=== PATIENT | male | born 1955 | race Caucasian/White ===

== ENCOUNTER 2018-10-28 10:23 | Day surgery (SDC) | payer MEDICAID ==
[~2018-10-28] VITALS: Ht 170.2 cm; Wt 64.7 kg
[2018-10-28] VITALS (9 sets, daily range): BP systolic 81–125; BP diastolic 50–76
[~2018-10-28 10:23] MED LIST: ALB0.5UD IH; ASPI-1265 PO; CARV6.253 PO; FOLI1TAB16 PO; FURO20TA4 PO; LISI2.5T2 PO; OMEP20TA23 PO; SIMV20TA5 PO; SPIR25TA PO; THI100T PO; TRAM50TA2 PO
[2018-10-28] MEDS ORDERED: cefazolin/dext.iso 2gm/100ml 100 ML IV ONE ×2 (10:46→11:52)
[2018-10-28] MEDS ORDERED: normal saline 1000ml 1,000 ML IV SCH (10:50)
[2018-10-28] MEDS ORDERED: LISI2.5T89 PO (11:24)
[2018-10-28] MEDS ORDERED: ASPI-611 PO (11:24)
[2018-10-28] MEDS ORDERED: FOLI1TAB16 PO (11:24)
[2018-10-28] MEDS ORDERED: FURO-150 PO (11:24)
[2018-10-28] MEDS ORDERED: CARV-49 PO (11:24)
[2018-10-28] MEDS ORDERED: ATR0.5NEB IH (11:24)
[2018-10-28] MEDS ORDERED: NICO-630 TOP (11:24)
[2018-10-28] MEDS ORDERED: midazolam 2 mg/2 ml injection ONE (11:28)
[2018-10-28] MEDS ORDERED: fentaNYL/PF 50MCG/1 ML 2ML syringe ONE (11:28)
[2018-10-28] MEDS ORDERED: ceFAZolin 1000mg inj ONE (11:28)
[2018-10-28] MEDS ORDERED: lidocaine 1%/epinephrine 1:100,000 injection 50ml vial ONE (11:28)
[2018-10-28] MEDS ORDERED: ceFAZolin 1GM/D5W- ADD-VANTAGE 50 ML IV SCH (16:00)
== END 2018-10-28 15:50 | disposition home or self-care (01) ==
LOC: SSTAY O 10:23
PROVIDERS: ATTEND Internal Medicine Interventional Cardiology
DX: I50.9 Heart failure, unspecified (principal); I42.8 Other cardiomyopathies; J44.9 Chronic obstructive pulmonary disease, unspecified; I11.0 Hypertensive heart disease with heart failure; Z79.82 Long term (current) use of aspirin; Z79.899 Other long term (current) drug therapy; Z82.49 Family history of ischemic heart disease and other diseases of the circulatory system; Z86.74 Personal history of sudden cardiac arrest
CPT/HCPCS: 33249; 93005; 99152; 99153; C1722; C1777; J0690; J2250; J3010; J3490; J7030; A4565; A4620

== ENCOUNTER 2018-10-31 10:15 | Emergency (ER) | payer MEDICAID ==
[~2018-10-31] VITALS: Ht 170.2 cm; Wt 63.8 kg
[~2018-10-31 10:15] MED LIST changes: -ASPI-1265 PO; +ASPI-611 PO; +ATR0.5NEB IH; +CARV-49 PO; -CARV6.253 PO; +FURO-150 PO; -FURO20TA4 PO; -LISI2.5T2 PO; +LISI2.5T89 PO; +NICO-630 TOP; -SPIR25TA PO; -THI100T PO; -TRAM50TA2 PO
[2018-10-31 11:57] LABS: BASOPHILS # (AUTO) 0.1 X10'3 (0-0.2); BASOPHILS % (AUTO) 1.7 % (0-1); EOSINOPHILS # (AUTO) 0.2 X10'3 (0-0.9); EOSINOPHILS % (AUTO) 2.4 % (0-6); HEMOGLOBIN 14.5 g/dl (14.0-17.9); LYMPHOCYTES # (AUTO) 1.4 X10'3 (1.1-4.8); LYMPHOCYTES % (AUTO) 17.4 % (21-51); MEAN CORPUSCULAR HEMOGLOBIN 33.1 PG (27.0-31.0); MEAN CORPUSCULAR HGB CONC 33.8 g/dL (33.0-36.5); MEAN CORPUSCULAR VOLUME 97.9 FL (78-98); MEAN PLATELET VOLUME 6.9 FL (7.4-10.4); MONOCYTES # (AUTO) 0.8 X10'3 (0-0.9); NEUTROPHILS # (AUTO) 5.6 X10'3 (1.8-7.7); NEUTROPHILS % (AUTO) 68.5 % (42-75); PLATELET COUNT 182 X10'3 (140-440); RED BLOOD COUNT 4.39 X10'6 (4.70-6.10); RED CELL DISTRIBUTION WIDTH 15.4 % (11.5-14.5); WHITE BLOOD COUNT 8.1 X10'3 (4.5-11.0)
[2018-10-31 12:08] LABS: PARTIAL THROMBOPLASTIN TIME 28 SECONDS (22-32)
[2018-10-31 12:24] LABS: ALANINE AMINOTRANSFERASE 39 U/L (12-78); ALBUMIN 3.4 G/DL (3.4-5.0); ALBUMIN/GLOBULIN RATIO 0.9 (1.1-1.5); ALKALINE PHOSPHATASE 93 IU/L (46-116); ANION GAP 6 (8-16); ASPARTATE AMINO TRANSFERASE 36 U/L (10-37); BILIRUBIN,TOTAL 0.6 MG/DL (0.1-1.0); BLOOD UREA NITROGEN 15 MG/DL (7-18); BUN/CREATININE RATIO 19.5 (5.4-32.0); CALCIUM 9.1 MG/DL (8.5-10.1); CHLORIDE 103 MMOL/L (99-107); CREATININE 0.77 MG/DL (0.60-1.10); GLUCOSE 95 MG/DL (70-104); POTASSIUM 4.5 MMOL/L (3.5-5.1); SODIUM 135 MMOL/L (135-145); TOTAL CARBON DIOXIDE 26.4 MMOL/L (24-32); TOTAL PROTEIN 7.1 G/DL (6.4-8.2); eGFR > 90 ML/MIN
[2018-10-31 12:45] VITALS: BP 109/79
[2018-10-31] MEDS ORDERED: AMOX-422 PO (12:48)
[2018-10-31 13:32] LABS: D-DIMER 0.65 MG/L FEU (0-0.50)
== END 2018-10-31 12:53 | disposition home or self-care (01) ==
LOC: ER 10:15
DX: T82.7XXA Infection and inflammatory reaction due to other cardiac and vascular devices, implants and grafts, initial encounter (principal); F17.200 Nicotine dependence, unspecified, uncomplicated; Z79.82 Long term (current) use of aspirin; Z79.899 Other long term (current) drug therapy; Y83.8 Other surgical procedures as the cause of abnormal reaction of the patient, or of later complication, without mention of misadventure at the time of the procedure; Y92.89 Other specified places as the place of occurrence of the external cause
CPT/HCPCS: 36415; 71045; 80053; 83605; 84145; 85025; 85379; 85610; 85730; 87040; 93005; 99284

== ENCOUNTER 2018-10-31 18:31 | Inpatient (IN) | payer MEDICAID ==
[~2018-10-31] VITALS: Ht 170.2 cm; Wt 67.8 kg
[~2018-10-31 18:31] MED LIST changes: +AMOX-422 PO
[2018-10-31] MEDS ORDERED: vancomycin/NS 1 GM ADD-VANTAGE 250 ML IV ONE (20:00)
[2018-10-31] MEDS ORDERED: piperacillin/tazo 3.375gm/50ml 50 ML IV ONE (20:00)
[2018-10-31] MEDS ORDERED: potassium Cl 20 mEq SR tablet PO PRN ×2 (20:15)
[2018-10-31] MEDS ORDERED: potassium Cl 40MEQ/NS 500ml 500 ML IV PRN ×2 (20:15)
[2018-10-31] MEDS ORDERED: magnesium hydroxide 30ml (MOM) UD suspension PO PRN (20:15)
[2018-10-31] MEDS ORDERED: acetaminophen 325mg tablet PO PRN (20:15)
[2018-10-31] MEDS ORDERED: magnesium Cl slow-release 64mg tablet PO PRN (20:15)
[2018-10-31] MEDS ORDERED: magnesium 4gm in 100ml NS 100 ML IV PRN (20:15)
[2018-10-31] MEDS ORDERED: mag hydrox/Alum hydrox/simeth 30ml oral suspension PO PRN (20:15)
[2018-10-31] MEDS ORDERED: ondansetron/PF 4mg/2ml inj IV PRN (20:15)
[2018-10-31] MEDS ORDERED: magnesium 2GM in 50ml NS 50 ML IV PRN (20:15)
[2018-10-31 20:23] LABS: BASOPHILS # (AUTO) 0.1 X10'3 (0-0.2); EOSINOPHILS # (AUTO) 0.2 X10'3 (0-0.9); EOSINOPHILS % (AUTO) 2.7 % (0-6); HEMATOCRIT 40.7 % (42.0-52.0); LYMPHOCYTES # (AUTO) 1.4 X10'3 (1.1-4.8); LYMPHOCYTES % (AUTO) 16.9 % (21-51); MEAN CORPUSCULAR HEMOGLOBIN 33.7 PG (27.0-31.0); MEAN CORPUSCULAR HGB CONC 34.4 g/dL (33.0-36.5); MEAN CORPUSCULAR VOLUME 97.7 FL (78-98); MEAN PLATELET VOLUME 6.6 FL (7.4-10.4); MONOCYTES # (AUTO) 0.8 X10'3 (0-0.9); MONOCYTES % (AUTO) 9.8 % (2-12); NEUTROPHILS # (AUTO) 5.9 X10'3 (1.8-7.7); NEUTROPHILS % (AUTO) 69.6 % (42-75); PLATELET COUNT 187 X10'3 (140-440); RED BLOOD COUNT 4.16 X10'6 (4.70-6.10); RED CELL DISTRIBUTION WIDTH 14.7 % (11.5-14.5); WHITE BLOOD COUNT 8.4 X10'3 (4.5-11.0)
[2018-10-31 20:41] LABS: URINE AMPHETAMINE SCREEN NEGATIVE (Neg); URINE BARBITUATE SCREEN NEGATIVE (Neg); URINE BENZODIAZEPINES SCREEN NEGATIVE (Neg); URINE CANNABINOID SCREEN NEGATIVE (Neg); URINE COCAINE SCREEN NEGATIVE (Neg); URINE METHADONE SCREEN NEGATIVE (Neg); URINE OPIATE SCREEN POSITIVE (Neg); URINE PHENCYCLIDINE SCREEN NEGATIVE (Neg)
[2018-10-31 20:44] LABS: ALANINE AMINOTRANSFERASE 38 U/L (12-78); ALBUMIN 3.3 G/DL (3.4-5.0); ALBUMIN/GLOBULIN RATIO 0.8 (1.1-1.5); ALKALINE PHOSPHATASE 102 IU/L (46-116); ANION GAP 8 (8-16); ASPARTATE AMINO TRANSFERASE 36 U/L (10-37); BILIRUBIN,TOTAL 0.4 MG/DL (0.1-1.0); BLOOD UREA NITROGEN 20 MG/DL (7-18); BUN/CREATININE RATIO 18.7 (5.4-32.0); CALCIUM 9.1 MG/DL (8.5-10.1); CHLORIDE 103 MMOL/L (99-107); CREATININE 1.07 MG/DL (0.60-1.10); GLUCOSE 126 MG/DL (70-104); LIPASE 72 U/L (73-393); POTASSIUM 4.2 MMOL/L (3.5-5.1); SODIUM 137 MMOL/L (135-145); TOTAL CARBON DIOXIDE 26.5 MMOL/L (24-32); TOTAL PROTEIN 7.2 G/DL (6.4-8.2); eGFR 70 ML/MIN
[2018-10-31] MEDS ORDERED: ipratropium/albuterol 3ml nebule NEB PRN (21:20)
[2018-10-31] MEDS ORDERED: HYDROcodone/acetaminophen 5mg/325mg tablet PO PRN (21:20)
[2018-10-31] MEDS ORDERED: morphine 4 MG/ML inj SYRINge IV ONE (21:45)
[2018-10-31 23:00] VITALS: BP 121/83
[2018-11-01 03:00] VITALS: BP 102/75
[2018-11-01] MEDS: HYDROcodone/acetaminophen 10/325mg tab PO PRN ×3 (04:25→23:22)
[2018-11-01] MEDS: piperacillin/tazo 3.375gm/50ml 50 ML IV SCH ×3 (04:25→21:03)
--- NOTE | 2018-11-01 06:28 | NUR ---
Problems reprioritized. Patient report given, questions answered & plan of care reviewed with AZAEL PIÑA.
--- NOTE | 2018-11-01 06:36 | NUR ---
Patient in room PCU 3028B. I have received report from Gage PIÑA and had the opportunity to ask questions and assume patient care. Patient is awake and alert in bed, currently denies complaints. Minimal drainage noted on pacemaker site. Patient verbalizes understanding of pending procedure with Dr Rawls this a.m. Bed is low and locked, call light within reach, will continue to monitor at this time.
[2018-11-01 07:01] VITALS: BP 130/86
[2018-11-01 07:09] LABS: ALANINE AMINOTRANSFERASE 33 U/L (12-78); ALBUMIN 2.9 G/DL (3.4-5.0); ALBUMIN/GLOBULIN RATIO 0.9 (1.1-1.5); ALKALINE PHOSPHATASE 85 IU/L (46-116); ANION GAP 5 (8-16); ASPARTATE AMINO TRANSFERASE 31 U/L (10-37); BILIRUBIN,TOTAL 0.5 MG/DL (0.1-1.0); BLOOD UREA NITROGEN 20 MG/DL (7-18); BUN/CREATININE RATIO 24.1 (5.4-32.0); CALCIUM 8.6 MG/DL (8.5-10.1); CHLORIDE 104 MMOL/L (99-107); CHOL/HDL RATIO 2.6 (0.00-4.99); CHOLESTEROL 156 MG/DL (0-200); CREATININE 0.83 MG/DL (0.60-1.10); GLUCOSE 99 MG/DL (70-104); HDL CHOLESTEROL 61 MG/DL (35-60); LDL CHOLESTEROL 91 MG/DL (50-100); MAGNESIUM 1.7 MG/DL (1.5-2.4); POTASSIUM 4.3 MMOL/L (3.5-5.1); SODIUM 136 MMOL/L (135-145); TOTAL CARBON DIOXIDE 26.8 MMOL/L (24-32); TOTAL PROTEIN 6.3 G/DL (6.4-8.2); TRIGLYCERIDES 58 MG/DL (20-135); eGFR > 90 ML/MIN
[2018-11-01 07:11] LABS: BASOPHILS # (AUTO) 0.1 X10'3 (0-0.2); EOSINOPHILS # (AUTO) 0.2 X10'3 (0-0.9); EOSINOPHILS % (AUTO) 2.9 % (0-6); HEMATOCRIT 39.2 % (42.0-52.0); HEMOGLOBIN 13.5 g/dl (14.0-17.9); LYMPHOCYTES # (AUTO) 1.3 X10'3 (1.1-4.8); LYMPHOCYTES % (AUTO) 16.7 % (21-51); MEAN CORPUSCULAR HEMOGLOBIN 33.4 PG (27.0-31.0); MEAN CORPUSCULAR HGB CONC 34.5 g/dL (33.0-36.5); MEAN CORPUSCULAR VOLUME 96.9 FL (78-98); MONOCYTES # (AUTO) 0.8 X10'3 (0-0.9); MONOCYTES % (AUTO) 10.9 % (2-12); NEUTROPHILS # (AUTO) 5.2 X10'3 (1.8-7.7); NEUTROPHILS % (AUTO) 68.5 % (42-75); PLATELET COUNT 158 X10'3 (140-440); RED BLOOD COUNT 4.04 X10'6 (4.70-6.10); RED CELL DISTRIBUTION WIDTH 15.1 % (11.5-14.5); WHITE BLOOD COUNT 7.6 X10'3 (4.5-11.0)
[2018-11-01] MEDS ORDERED: K and/or MAG REPLACEMENT MC SCH (08:00)
[2018-11-01] MEDS: carvedilol 6.25mg tablet PO SCH ×2 (09:24→21:04)
[2018-11-01] MEDS: vancomycin/NS 1 GM ADD-VANTAGE 250 ML IV SCH (09:24)
[2018-11-01] MEDS: furosemide 20MG tablet PO SCH (09:25)
[2018-11-01] MEDS: folic acid 1mg tablet PO SCH (09:25)
[2018-11-01] MEDS: atorvastatin 10mg tablet PO SCH (09:25)
[2018-11-01] MEDS: lisinopril 2.5mg tablet PO SCH (09:26)
[2018-11-01] MEDS ORDERED: VANCOMYCIN 750MG IV in NS 250 ML IV SCH (10:00)
[2018-11-01] MEDS ORDERED: fentaNYL/PF 50MCG/1 ML 2ML syringe ONE (10:33)
[2018-11-01] MEDS ORDERED: midazolam 2 mg/2 ml injection ONE (10:33)
[2018-11-01] MEDS ORDERED: lidocaine 1%/epinephrine 1:100,000 injection 50ml vial ONE (10:33)
--- NOTE | 2018-11-01 10:46 | NUR ---
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
[2018-11-01] MEDS ORDERED: vancomycin 1,000mg inj ONE ×2 (11:02→11:13)
--- NOTE | 2018-11-01 12:11 | NUR ---
Patient back from oil laboratory analyst, denies complaints, appears to be in no distress. Was informed that patient "had a few low blood pressures down in oil laboratory analyst" Patient's current BP is 108/54. Bed is low and locked, all orders faxed to pharmacy, diet ordered. Was instructed by labelling machine operator RN to NOT remove pressure dressing unless patient reports issues on the incision site. Will continue to monitor patient at this time.
[2018-11-01 12:12] VITALS: BP 108/54
[2018-11-01] MEDS ORDERED: normal saline 1000ml 1,000 ML IV SCH (12:15)
[2018-11-01] MEDS ORDERED: LORazepam 1 MG tablet PO PRN (12:15)
[2018-11-01 15:00] VITALS: BP 90/64
[2018-11-01 18:00] VITALS: BP 107/62
--- NOTE | 2018-11-01 18:52 | NUR ---
Problems reprioritized. Patient report given, questions answered & plan of care reviewed with Gage PIÑA and Ivania PIÑA. Patient stable and denies complaints at transfer of care.
[2018-11-01] MEDS ORDERED: pantoprazole 40mg Tablet.DR PO SCH (21:00)
[2018-11-01] MEDS: lactobacillus rhamnosus 10,000 MMU CELLS/CAPSULE PO SCH (21:04)
[2018-11-01 22:00] VITALS: BP 93/62
[2018-11-02] MEDS: piperacillin/tazo 3.375gm/50ml 50 ML IV SCH (04:00)
[2018-11-02] MEDS: vancomycin/NS 1 GM ADD-VANTAGE 250 ML IV SCH (04:03)
--- NOTE | 2018-11-02 06:19 | NUR ---
Problems reprioritized. Patient report given, questions answered & plan of care reviewed with RICARDO PIÑA.
[2018-11-02 06:39] LABS: BASOPHILS # (AUTO) 0.1 X10'3 (0-0.2); BASOPHILS % (AUTO) 1.3 % (0-1); EOSINOPHILS # (AUTO) 0.4 X10'3 (0-0.9); EOSINOPHILS % (AUTO) 4.6 % (0-6); HEMATOCRIT 38.6 % (42.0-52.0); HEMOGLOBIN 13.3 g/dl (14.0-17.9); LYMPHOCYTES # (AUTO) 1.4 X10'3 (1.1-4.8); LYMPHOCYTES % (AUTO) 18.4 % (21-51); MEAN CORPUSCULAR HEMOGLOBIN 33.7 PG (27.0-31.0); MEAN CORPUSCULAR HGB CONC 34.4 g/dL (33.0-36.5); MEAN CORPUSCULAR VOLUME 97.8 FL (78-98); MEAN PLATELET VOLUME 6.9 FL (7.4-10.4); MONOCYTES # (AUTO) 0.7 X10'3 (0-0.9); MONOCYTES % (AUTO) 9.6 % (2-12); NEUTROPHILS # (AUTO) 5.1 X10'3 (1.8-7.7); NEUTROPHILS % (AUTO) 66.1 % (42-75); PLATELET COUNT 159 X10'3 (140-440); RED BLOOD COUNT 3.94 X10'6 (4.70-6.10); RED CELL DISTRIBUTION WIDTH 15.2 % (11.5-14.5); WHITE BLOOD COUNT 7.8 X10'3 (4.5-11.0)
[2018-11-02 06:41] LABS: ALANINE AMINOTRANSFERASE 30 U/L (12-78); ALBUMIN 2.7 G/DL (3.4-5.0); ALBUMIN/GLOBULIN RATIO 0.8 (1.1-1.5); ALKALINE PHOSPHATASE 75 IU/L (46-116); ANION GAP 7 (8-16); ASPARTATE AMINO TRANSFERASE 31 U/L (10-37); BILIRUBIN,TOTAL 0.7 MG/DL (0.1-1.0); BLOOD UREA NITROGEN 16 MG/DL (7-18); BUN/CREATININE RATIO 17.8 (5.4-32.0); CALCIUM 8.9 MG/DL (8.5-10.1); CHLORIDE 103 MMOL/L (99-107); GLUCOSE 90 MG/DL (70-104); MAGNESIUM 1.8 MG/DL (1.5-2.4); POTASSIUM 4.5 MMOL/L (3.5-5.1); SODIUM 137 MMOL/L (135-145); TOTAL CARBON DIOXIDE 26.9 MMOL/L (24-32); eGFR 86 ML/MIN
[2018-11-02 07:00] VITALS: BP 94/72
--- NOTE | 2018-11-02 07:00 | NUR ---
Patient in room PCU 3028. I have received report from Gage PIÑA and had the opportunity to ask questions and assume patient care.
[2018-11-02] MEDS: HYDROcodone/acetaminophen 10/325mg tab PO PRN (08:50)
[2018-11-02] MEDS ORDERED: VANCOMYCIN LEVEL IV NR (09:30)
[2018-11-02] MEDS: carvedilol 6.25mg tablet PO SCH (09:40)
[2018-11-02] MEDS: lactobacillus rhamnosus 10,000 MMU CELLS/CAPSULE PO SCH (09:41)
[2018-11-02] MEDS: atorvastatin 10mg tablet PO SCH (09:41)
[2018-11-02] MEDS: folic acid 1mg tablet PO SCH (09:41)
[2018-11-02] MEDS: furosemide 20MG tablet PO SCH (09:41)
[2018-11-02] MEDS: lisinopril 2.5mg tablet PO SCH (09:44)
[2018-11-02 11:00] VITALS: BP 103/69
--- NOTE | 2018-11-02 13:22 | NUR ---
Patient was discharged at 1255 home. Discharge packet and patient education was reviewed before signing and being sent home with the patient. Rx was given to the patient and sent home with all other belongings. PIV was removed with cannula intact and telemetry monitoring was removed. Patient was wearing sling and was stable and appropriate for discharge. Patient was wheeled down by staff and left via private vehicle.
[2018-11-02] MEDS ORDERED: vancomycin inj 1,250 MG in NS 250ml IV soln IV SCH (16:00)
[2018-11-04] MEDS ORDERED: VANCOMYCIN LEVEL IV NR (03:30)
== END 2018-11-02 12:55 | disposition home or self-care (01) | DRG 813 ==
LOC: ER 18:31 → PCU 3S 20:12 → CMPBEDREQ 11-01 15:13
PROVIDERS: ADMIT Family Medicine; ATTEND Internal Medicine Interventional Cardiology
PROC: 0JC60ZZ Extirpation of Matter from Chest Subcutaneous Tissue and Fascia, Open Approach (ICD-10-PCS; principal; 2018-11-01)
DX: L76.32 Postprocedural hematoma of skin and subcutaneous tissue following other procedure (principal); I42.9 Cardiomyopathy, unspecified; I11.0 Hypertensive heart disease with heart failure; I50.22 Chronic systolic (congestive) heart failure; Y83.8 Other surgical procedures as the cause of abnormal reaction of the patient, or of later complication, without mention of misadventure at the time of the procedure; E78.5 Hyperlipidemia, unspecified; F17.210 Nicotine dependence, cigarettes, uncomplicated; J44.9 Chronic obstructive pulmonary disease, unspecified; Z85.72 Personal history of non-Hodgkin lymphomas; Y92.89 Other specified places as the place of occurrence of the external cause; Z92.21 Personal history of antineoplastic chemotherapy; Z79.899 Other long term (current) drug therapy; Z79.82 Long term (current) use of aspirin; Z82.49 Family history of ischemic heart disease and other diseases of the circulatory system
CPT/HCPCS: 33222; 36415; 80053; 80061; 80202; 80305; 83690; 83735; 85025; 85610; 87070; 94640; 94760; 99152; 99153; 99285; A4565; A4620; G0378; J2250; J2270; J2543; J3010; J3370; J3490; J7030

== ENCOUNTER 2021-01-02 10:42 | Emergency (ER) | payer MEDICAID ==
[~2021-01-02] VITALS: Ht 170.2 cm; Wt 65.9 kg
[~2021-01-02 10:42] MED LIST changes: -AMOX-422 PO; -ASPI-611 PO; +SIMV-42 PO; -SIMV20TA5 PO
[2021-01-02 13:04] LABS: BASOPHILS # (AUTO) 0.1 X10'3 (0-0.2); BASOPHILS % (AUTO) 0.9 % (0-1); EOSINOPHILS # (AUTO) 0.1 X10'3 (0-0.9); EOSINOPHILS % (AUTO) 1.6 % (0-6); HEMATOCRIT 45.2 % (42.0-52.0); HEMOGLOBIN 14.9 g/dl (14.0-17.9); LYMPHOCYTES % (AUTO) 13.3 % (21-51); MEAN CORPUSCULAR HEMOGLOBIN 34.1 PG (27.0-31.0); MEAN CORPUSCULAR VOLUME 103.2 FL (78-98); MEAN PLATELET VOLUME 7.6 FL (7.4-10.4); MONOCYTES # (AUTO) 0.7 X10'3 (0-0.9); MONOCYTES % (AUTO) 9.5 % (2-12); NEUTROPHILS # (AUTO) 5.6 X10'3 (1.8-7.7); NEUTROPHILS % (AUTO) 74.7 % (42-75); PLATELET COUNT 133 X10'3 (140-440); RED BLOOD COUNT 4.38 X10'6 (4.70-6.10); RED CELL DISTRIBUTION WIDTH 14.9 % (11.5-14.5); WHITE BLOOD COUNT 7.4 X10'3 (4.5-11.0)
[2021-01-02 13:24] LABS: ALANINE AMINOTRANSFERASE 36 U/L (12-78); ALBUMIN 3.5 G/DL (3.4-5.0); ALKALINE PHOSPHATASE 99 IU/L (46-116); ANION GAP 8 (8-16); ASPARTATE AMINO TRANSFERASE 31 U/L (10-37); BILIRUBIN,TOTAL 0.8 MG/DL (0.1-1.0); BLOOD UREA NITROGEN 20 MG/DL (7-18); BUN/CREATININE RATIO 18.3 (5.4-32.0); CALCIUM 8.7 MG/DL (8.5-10.1); CHLORIDE 97 MMOL/L (99-107); CREATININE 1.09 MG/DL (0.60-1.10); GLUCOSE 116 MG/DL (70-104); SODIUM 130 MMOL/L (135-145); TOTAL CARBON DIOXIDE 25.5 MMOL/L (24-32); eGFR 68 ML/MIN
[2021-01-02 13:58] LABS: POTASSIUM 6.1 MMOL/L (3.5-5.1)
[2021-01-02 14:27] VITALS: BP 94/71
[2021-01-02] MEDS ORDERED: furosemide 10 MG/1 ML 10ml inj IV ONE (14:30)
[2021-01-02] MEDS ORDERED: albuterol 2.5 MG/3 ML nebule CONTNEB PRN (14:30)
[2021-01-02] MEDS ORDERED: normal saline 1000ml 1,000 ML IV SCH (14:35)
[2021-01-02 17:19] LABS: ANION GAP 8 (8-16); CHLORIDE 97 MMOL/L (99-107); POTASSIUM 5.3 MMOL/L (3.5-5.1); SODIUM 132 MMOL/L (135-145); TOTAL CARBON DIOXIDE 26.9 MMOL/L (24-32)
[2021-01-02] MEDS ORDERED: sodium polystyrene sulfonate 15gm/60ml oral suspension PO ONE (17:25)
== END 2021-01-02 18:02 | disposition home or self-care (01) ==
LOC: ER 10:42
DX: I50.9 Heart failure, unspecified (principal); E87.6 Hypokalemia; R06.02 Shortness of breath; R05 Cough; Z95.0 Presence of cardiac pacemaker; Z72.89 Other problems related to lifestyle; Z79.899 Other long term (current) drug therapy
CPT/HCPCS: 36415; 71045; 80051; 80053; 83880; 84484; 85025; 93005; 94640; 94644; 96361; 96374; 99285; J1940; J7030; 94760; A7015

== ENCOUNTER 2021-02-14 16:28 | Inpatient (IN) | payer MEDICAID ==
[~2021-02-14] VITALS: Ht 172.7 cm; Wt 66.1 kg
[2021-02-14] MEDS ORDERED: normal saline 1000ML IV soln IVB ONE (16:40)
[2021-02-14 17:08] LABS: BASOPHILS # (AUTO) 0.1 X10'3 (0-0.2); BASOPHILS % (AUTO) 0.9 % (0-1); EOSINOPHILS # (AUTO) 0.1 X10'3 (0-0.9); EOSINOPHILS % (AUTO) 0.9 % (0-6); HEMATOCRIT 45.1 % (42.0-52.0); HEMOGLOBIN 15.1 g/dl (14.0-17.9); LYMPHOCYTES # (AUTO) 1.3 X10'3 (1.1-4.8); LYMPHOCYTES % (AUTO) 16.6 % (21-51); MEAN CORPUSCULAR HEMOGLOBIN 33.8 PG (27.0-31.0); MEAN CORPUSCULAR HGB CONC 33.5 g/dL (33.0-36.5); MEAN CORPUSCULAR VOLUME 100.8 FL (78-98); MONOCYTES # (AUTO) 0.7 X10'3 (0-0.9); MONOCYTES % (AUTO) 9.7 % (2-12); NEUTROPHILS # (AUTO) 5.5 X10'3 (1.8-7.7); NEUTROPHILS % (AUTO) 71.9 % (42-75); PLATELET COUNT 163 X10'3 (140-440); RED BLOOD COUNT 4.48 X10'6 (4.70-6.10); RED CELL DISTRIBUTION WIDTH 14.2 % (11.5-14.5); WHITE BLOOD COUNT 7.6 X10'3 (4.5-11.0)
[2021-02-14 17:14] LABS: PARTIAL THROMBOPLASTIN TIME 27 SECONDS (22-32)
[2021-02-14 17:21] LABS: ALANINE AMINOTRANSFERASE 26 U/L (12-78); ALBUMIN 3.5 G/DL (3.4-5.0); ALBUMIN/GLOBULIN RATIO 1.1 (1.1-1.5); ALKALINE PHOSPHATASE 79 IU/L (46-116); ANION GAP 13 (8-16); ASPARTATE AMINO TRANSFERASE 21 U/L (10-37); BILIRUBIN,TOTAL 0.6 MG/DL (0.1-1.0); BLOOD UREA NITROGEN 21 MG/DL (7-18); BUN/CREATININE RATIO 19.4 (5.4-32.0); CALCIUM 8.7 MG/DL (8.5-10.1); CHLORIDE 97 MMOL/L (99-107); CREATININE 1.08 MG/DL (0.60-1.10); GLUCOSE 144 MG/DL (70-104); POTASSIUM 4.6 MMOL/L (3.5-5.1); SODIUM 132 MMOL/L (135-145); TOTAL PROTEIN 6.8 G/DL (6.4-8.2); eGFR 69 ML/MIN
[2021-02-14 17:22] LABS: TROPONIN I < 0.04 NG/ML (0.0-0.05)
--- NOTE | 2021-02-14 17:40 | NUR ---
MORENA Rob made aware 2L NS bolus has been given, BP 105/80, CT has been contacted to come get Pat, and Pat is requesting breathing treatment.
[2021-02-14] MEDS ORDERED: ipratropium/albuterol 3ml nebule NEB ONE (18:00)
--- NOTE | 2021-02-14 18:31 | NUR ---
PA STATES PT CAN EAT.
[2021-02-14] MEDS ORDERED: aspirin 81mg tab.chew PO ONE (19:15)
[2021-02-14] MEDS ORDERED: magnesium hydroxide 30ml (MOM) UD suspension PO PRN (19:55)
[2021-02-14] MEDS ORDERED: normal saline 1000ml 1,000 ML IV SCH (19:55)
[2021-02-14] MEDS ORDERED: diphenhydrAMINE 25mg capsule PO PRN (19:55)
[2021-02-14] MEDS ORDERED: ondansetron/PF 4mg/2ml inj IV PRN (19:55)
[2021-02-14] MEDS ORDERED: morphine 2 MG/ML inj. syringe IV PRN (19:55)
[2021-02-14] MEDS ORDERED: HYDROcodone/acetaminophen 5mg/325mg tablet PO PRN (19:55)
[2021-02-14] MEDS ORDERED: acetaminophen 325mg tablet PO PRN ×2 (19:55)
[2021-02-14] MEDS ORDERED: diphenhydrAMINE 50 mg/ml inj IV PRN (19:55)
[2021-02-14] MEDS ORDERED: acetaminophen 650mg rectal suppository RC PRN (19:55)
[2021-02-14] MEDS ORDERED: ondansetron 4mg rapidly disintigrating tab PO PRN (19:55)
[2021-02-14] MEDS ORDERED: bisacodyl 10mg suppository rectal RC PRN (19:55)
[2021-02-14] MEDS ORDERED: mag hydrox/Alum hydrox/simeth 30ml oral suspension PO PRN (19:55)
[2021-02-14] MEDS: docusate sod 100mg capsule PO SCH (20:00)
[2021-02-14] MEDS ORDERED: iohexol 350MG/ML 100ml bottle IV ONE (20:06)
[2021-02-14 20:17] LABS: HEMOGLOBIN A1C 6.3 % (4.5-6.2)
[2021-02-14 20:30] LABS: CREATINE KINASE 57 U/L (39-308); LIPASE < 50 U/L (73-393); MAGNESIUM 2.1 MG/DL (1.5-2.4); PHOSPHORUS 4.5 MG/DL (2.3-4.5)
[2021-02-14] MEDS ORDERED: IPRA3AMP31 (20:33)
[2021-02-14] MEDS ORDERED: SPIR100T5 PO (20:33)
[2021-02-14] MEDS ORDERED: TIOT4MIS2 INH (20:33)
[2021-02-14] MEDS ORDERED: ASPI-611 PO (20:33)
[2021-02-14] MEDS ORDERED: ipratropium/albuterol 3ml nebule IH PRN (20:45)
[2021-02-14] MEDS ORDERED: temazepam 15mg capsule PO PRN (21:00)
[2021-02-14] MEDS ORDERED: atorvastatin 10mg tablet PO SCH (21:00)
--- NOTE | 2021-02-14 22:17 | NUR ---
Pt sleeping. BP low, which it has been since his arrival to the ED. MD aware. Another liter NS bolus started. Pt denies any complaints at this time.
[2021-02-15] MEDS ORDERED: albuterol 2.5 MG/3 ML nebule NEB PRN
[2021-02-15 01:58] LABS: BASOPHILS # (AUTO) 0.1 X10'3 (0-0.2); BASOPHILS % (AUTO) 1.3 % (0-1); EOSINOPHILS # (AUTO) 0.1 X10'3 (0-0.9); EOSINOPHILS % (AUTO) 1.8 % (0-6); HEMATOCRIT 43.3 % (42.0-52.0); HEMOGLOBIN 14.7 g/dl (14.0-17.9); LYMPHOCYTES # (AUTO) 1.3 X10'3 (1.1-4.8); LYMPHOCYTES % (AUTO) 18.5 % (21-51); MEAN CORPUSCULAR HEMOGLOBIN 33.5 PG (27.0-31.0); MEAN CORPUSCULAR HGB CONC 33.9 g/dL (33.0-36.5); MEAN PLATELET VOLUME 6.8 FL (7.4-10.4); MONOCYTES # (AUTO) 0.7 X10'3 (0-0.9); MONOCYTES % (AUTO) 9.8 % (2-12); NEUTROPHILS # (AUTO) 4.6 X10'3 (1.8-7.7); NEUTROPHILS % (AUTO) 68.6 % (42-75); PLATELET COUNT 143 X10'3 (140-440); RED BLOOD COUNT 4.38 X10'6 (4.70-6.10); RED CELL DISTRIBUTION WIDTH 14.4 % (11.5-14.5); WHITE BLOOD COUNT 6.8 X10'3 (4.5-11.0)
[2021-02-15 02:16] LABS: ALANINE AMINOTRANSFERASE 22 U/L (12-78); ALKALINE PHOSPHATASE 85 IU/L (46-116); ANION GAP 8 (8-16); ASPARTATE AMINO TRANSFERASE 22 U/L (10-37); BILIRUBIN,TOTAL 0.4 MG/DL (0.1-1.0); BLOOD UREA NITROGEN 18 MG/DL (7-18); BUN/CREATININE RATIO 20.2 (5.4-32.0); CHLORIDE 103 MMOL/L (99-107); CHOL/HDL RATIO 3.4 (0.00-4.99); CHOLESTEROL 168 MG/DL (0-200); CREATININE 0.89 MG/DL (0.60-1.10); GLUCOSE 92 MG/DL (70-104); HDL CHOLESTEROL 49 MG/DL (35-60); LDL CHOLESTEROL 97 MG/DL (50-100); POTASSIUM 4.3 MMOL/L (3.5-5.1); SODIUM 136 MMOL/L (135-145); TOTAL CARBON DIOXIDE 25.1 MMOL/L (24-32); TRIGLYCERIDES 68 MG/DL (20-135); eGFR 86 ML/MIN
--- NOTE | 2021-02-15 06:05 | NUR ---
Pt up and ambulatory to restroom with steady gait. Pt AAOx4. No neurological s/s at this time.
[2021-02-15] MEDS ORDERED: pantoprazole 40mg Tablet.DR PO SCH (08:00)
[2021-02-15] MEDS ORDERED: folic acid 1mg tablet PO SCH (08:00)
[2021-02-15] MEDS: docusate sod 100mg capsule PO SCH (08:00)
[2021-02-15] MEDS ORDERED: aspirin 81mg tablet.DR PO SCH (08:00)
[2021-02-15] MEDS ORDERED: carvedilol 6.25mg tablet PO SCH (08:00)
[2021-02-15] MEDS: ipratropium 0.5 MG/2.5ML nebule NEB SCH ×2 (09:02→15:54)
[2021-02-15 14:29] VITALS: BP 102/78
[2021-02-15] MEDS ORDERED: CLOP75TA15 PO (17:29)
[2021-02-15] MEDS ORDERED: ATOR20TA66 PO (17:29)
== END 2021-02-15 18:26 | disposition home or self-care (01) | DRG 45 ==
LOC: ER 16:28 → ED HOLD 19:59
PROVIDERS: ADMIT Family Medicine; ATTEND Internal Medicine
PROC: B3251ZZ Computerized Tomography (CT Scan) of Bilateral Common Carotid Arteries using Low Osmolar Contrast (ICD-10-PCS; principal; 2021-02-14)
PROC: B32G1ZZ Computerized Tomography (CT Scan) of Bilateral Vertebral Arteries using Low Osmolar Contrast (ICD-10-PCS; 2021-02-14)
PROC: B32R1ZZ Computerized Tomography (CT Scan) of Intracranial Arteries using Low Osmolar Contrast (ICD-10-PCS; 2021-02-14)
PROC: B3281ZZ Computerized Tomography (CT Scan) of Bilateral Internal Carotid Arteries using Low Osmolar Contrast (ICD-10-PCS; 2021-02-14)
DX: I63.9 Cerebral infarction, unspecified (principal); I50.23 Acute on chronic systolic (congestive) heart failure; E87.2 Acidosis; E87.1 Hypo-osmolality and hyponatremia; I49.5 Sick sinus syndrome; G44.209 Tension-type headache, unspecified, not intractable; R29.701 NIHSS score 1; J44.9 Chronic obstructive pulmonary disease, unspecified; Z72.0 Tobacco use; Z79.02 Long term (current) use of antithrombotics/antiplatelets; Z79.82 Long term (current) use of aspirin; Z85.72 Personal history of non-Hodgkin lymphomas; Z95.0 Presence of cardiac pacemaker; Z82.49 Family history of ischemic heart disease and other diseases of the circulatory system; Z79.899 Other long term (current) drug therapy
CPT/HCPCS: 36415; 70450; 70496; 70498; 71045; 80053; 80061; 82550; 83036; 83690; 83735; 83880; 84100; 84443; 84484; 85025; 85610; 85730; 87081; 92508; 92616; 93005; 94640; 94760; 97161; 99285; G0378; J7030; Q9967

== ENCOUNTER 2021-03-05 00:17 | Inpatient (IN) | payer MEDICAID ==
[~2021-03-05] VITALS: Ht 170.2 cm; Wt 72.9 kg
[~2021-03-05 00:17] MED LIST changes: +ASPI-611 PO; +ATOR20TA66 PO; -ATR0.5NEB IH; -CARV-49 PO; +CLOP75TA15 PO; +IPRA3AMP31 NEB; -LISI2.5T89 PO; -NICO-630 TOP; -SIMV-42 PO; +SPIR100T5 PO; +TIOT4MIS2 INH
[2021-03-05 00:43] LABS: BASOPHILS % (AUTO) 0.3 % (0-1); EOSINOPHILS # (AUTO) 0.1 X10'3 (0-0.9); EOSINOPHILS % (AUTO) 1.3 % (0-6); HEMATOCRIT 40.1 % (42.0-52.0); HEMOGLOBIN 13.5 g/dl (14.0-17.9); LYMPHOCYTES % (AUTO) 14.6 % (21-51); MEAN CORPUSCULAR HEMOGLOBIN 33.3 PG (27.0-31.0); MEAN CORPUSCULAR HGB CONC 33.7 g/dL (33.0-36.5); MEAN CORPUSCULAR VOLUME 98.8 FL (78-98); MEAN PLATELET VOLUME 7.9 FL (7.4-10.4); MONOCYTES # (AUTO) 0.8 X10'3 (0-0.9); MONOCYTES % (AUTO) 11.7 % (2-12); NEUTROPHILS # (AUTO) 4.9 X10'3 (1.8-7.7); NEUTROPHILS % (AUTO) 72.1 % (42-75); PLATELET COUNT 156 X10'3 (140-440); RED BLOOD COUNT 4.06 X10'6 (4.70-6.10); RED CELL DISTRIBUTION WIDTH 14.4 % (11.5-14.5); WHITE BLOOD COUNT 6.8 X10'3 (4.5-11.0)
[2021-03-05 00:51] LABS: ALANINE AMINOTRANSFERASE 68 U/L (12-78); ALBUMIN/GLOBULIN RATIO 0.9 (1.1-1.5); ALKALINE PHOSPHATASE 128 IU/L (46-116); ANION GAP 9 (8-16); ASPARTATE AMINO TRANSFERASE 57 U/L (10-37); BILIRUBIN,TOTAL 0.7 MG/DL (0.1-1.0); BLOOD UREA NITROGEN 41 MG/DL (7-18); BUN/CREATININE RATIO 20.9 (5.4-32.0); CHLORIDE 100 MMOL/L (99-107); CREATININE 1.96 MG/DL (0.60-1.10); GLUCOSE 115 MG/DL (70-104); POTASSIUM 5.7 MMOL/L (3.5-5.1); SODIUM 132 MMOL/L (135-145); TOTAL CARBON DIOXIDE 23.5 MMOL/L (24-32); TOTAL PROTEIN 6.2 G/DL (6.4-8.2); eGFR 35 ML/MIN
[2021-03-05] MEDS ORDERED: normal saline 1000ML IV soln IVB ONE (02:05)
[2021-03-05] MEDS ORDERED: ipratropium/albuterol 3ml nebule NEB ONE (02:05)
[2021-03-05] MEDS ORDERED: aspirin 81mg tab.chew PO ONE (02:10)
[2021-03-05] MEDS ORDERED: magnesium hydroxide 30ml (MOM) UD suspension PO PRN (03:00)
[2021-03-05] MEDS: normal saline 1000ml 1,000 ML IV SCH (03:00)
[2021-03-05] MEDS ORDERED: ondansetron/PF 4mg/2ml inj IV PRN (03:00)
[2021-03-05] MEDS ORDERED: mag hydrox/Alum hydrox/simeth 30ml oral suspension PO PRN (03:00)
[2021-03-05] MEDS ORDERED: diphenhydrAMINE 25mg capsule PO PRN (03:00)
[2021-03-05] MEDS ORDERED: morphine 2 MG/ML inj. syringe IV PRN ×2 (03:00)
[2021-03-05] MEDS ORDERED: bisacodyl 10mg suppository rectal RC PRN (03:00)
[2021-03-05] MEDS ORDERED: acetaminophen 650mg rectal suppository RC PRN (03:00)
[2021-03-05] MEDS ORDERED: HYDROcodone/acetaminophen 5mg/325mg tablet PO PRN (03:00)
[2021-03-05] MEDS ORDERED: ondansetron 4mg rapidly disintigrating tab PO PRN (03:00)
[2021-03-05] MEDS ORDERED: acetaminophen 325mg tablet PO PRN ×2 (03:00)
[2021-03-05] MEDS ORDERED: diphenhydrAMINE 50 mg/ml inj IV PRN (03:00)
[2021-03-05] MEDS ORDERED: CALCIUM GLUC 1gm/50ml NACL,iso 50 ML IV PRN (03:10)
[2021-03-05] MEDS ORDERED: sodium polystyrene sulfonate 15gm/60ml oral suspension PO ONE (03:10)
[2021-03-05] MEDS ORDERED: sodium bicarbonate (8.4%) 1 mEq/ml syringe IV ONE (03:10)
[2021-03-05] MEDS ORDERED: insulin regular, human 10 units/0.1 ml syringe IV ONE (03:10)
[2021-03-05] MEDS ORDERED: dextrose 50%-water 50ml dispensing syringe IV ONE (03:10)
[2021-03-05] MEDS ORDERED: sodium bicarbonate (8.4%) inj. 1 MEQ/ML ML IV ONE (03:25)
[2021-03-05] MEDS ORDERED: CARV6.253 PO (03:26)
[2021-03-05] MEDS ORDERED: ATOR-2 PO (03:27)
[2021-03-05] MEDS ORDERED: CLOP75TA34 PO (03:28)
[2021-03-05] MEDS ORDERED: normal saline 500ml IV soln 500 ML IV ONE (03:40)
[2021-03-05 04:51] LABS: CREATINE KINASE 71 U/L (39-308); LIPASE < 50 U/L (73-393); MAGNESIUM 2.2 MG/DL (1.5-2.4); PHOSPHORUS 5.6 MG/DL (2.3-4.5)
[2021-03-05 04:53] LABS: HEMOGLOBIN A1C 6.8 % (4.5-6.2)
[2021-03-05] MEDS: DOPamine 400mg/D5W 250ml 250 ML IV SCH (05:30)
--- NOTE | 2021-03-05 06:30 | NUR ---
dr naylor came to nurses station spoke to night nurse lencho regarding giving pt iv fluid 250 ml onces for low bp ,will follow the orders. Addendum: 03/05/21 at [address] roberts that pt is on dopamine drip but still want us to admin 250 ml of normal saline .i am taking over from lencho will start the iv fluid .
[2021-03-05] MEDS ORDERED: normal saline 1000ml 1,000 ML IV ONE (06:45)
[2021-03-05] MEDS: ipratropium/albuterol 3ml nebule NEB SCH ×4 (07:34→20:58)
--- NOTE | 2021-03-05 07:39 | NUR ---
rt at bedside.
[2021-03-05] MEDS ORDERED: non-formulary drug (Tiotropium Bromide (Spiriva Respimat) 2 PUFFS) INH SCH (08:00)
[2021-03-05] MEDS: docusate sod 100mg capsule PO SCH ×2 (08:00→20:46)
[2021-03-05] MEDS: atorvastatin 20mg tablet PO SCH (08:00)
[2021-03-05] MEDS: nicotine 21mg patch - 24 hr TD SCH (08:24)
[2021-03-05] MEDS: aspirin 81mg, enteric-coated 1 TAB TABLET.DR PO SCH (08:24)
[2021-03-05] MEDS: clopidogrel 75mg tablet PO SCH (08:25)
[2021-03-05] MEDS: pantoprazole 40mg Tablet.DR PO SCH (08:25)
[2021-03-05] MEDS: heparin, porcine 5000 units/ml vial SQ SCH ×2 (08:27→20:48)
[2021-03-05] MEDS: carvedilol 6.25mg tablet PO SCH ×2 (08:28→20:46)
--- NOTE | 2021-03-05 08:52 | NUR ---
SPICE MILLER HAMMER MILL AT BEDSIDE.
[2021-03-05 09:45] LABS: CLARITY,URINE SLIGHTLY CLOUDY (Clear); COLOR,URINE YELLOW (Yellow); GLUCOSE, URINE NEGATIVE (Neg); KETONES,URINE TRACE mg/dl (Neg); LEUKOCYTE ESTERASE ,URINE NEGATIVE (Neg); NITRITES, URINE NEGATIVE (Neg); OCCULT BLOOD,URINE TRACE-INTACT (Neg); PROTEIN,URINE 30 mg/dl (Neg)
[2021-03-05 09:46] LABS: UA COLLECTION TYPE VOIDED
[2021-03-05 10:18] LABS: FINE GRANULAR CAST 0-3 /LPF (NEGATIVE)
[2021-03-05 10:21] LABS: BACTERIA,URINE FEW /HPF (Neg); SQUAMOUS EPITHELIAL CELL,UR FEW /LPF (FEW); WBC,URINE 0-4 /HPF (0-4)
[2021-03-05 10:22] LABS: CAL OXALATE CRYSTALS 1+ /HPF (NEGATIVE)
[2021-03-05 10:23] LABS: SPERM FEW /HPF (NEGATIVE); TRANSITIONAL EPI CELLS,URINE FEW /HPF
[2021-03-05 11:40] LABS: PARTIAL THROMBOPLASTIN TIME 28 SECONDS (22-32)
--- NOTE | 2021-03-05 12:58 | NUR ---
pt informed me that some doctor came by and said soon he will be going upsatirs.dr domingo was here few mins ago in er.
--- NOTE | 2021-03-05 19:50 | NUR ---
SPOKE TO DR. NUNEZ CONCERNING PT'S POTASSIUM LEVEL PRIOR TO TREATMENT. HE GAVE A VERBAL OK TO DRAW NEW LABS. MD AWARE OF PT'S INCREASE IN TROPONIN WELL.
[2021-03-05 20:54] LABS: ALANINE AMINOTRANSFERASE 90 U/L (12-78); ALBUMIN 3.1 G/DL (3.4-5.0); ALKALINE PHOSPHATASE 129 IU/L (46-116); ANION GAP 9 (8-16); ASPARTATE AMINO TRANSFERASE 59 U/L (10-37); BILIRUBIN,TOTAL 0.7 MG/DL (0.1-1.0); BLOOD UREA NITROGEN 40 MG/DL (7-18); CALCIUM 8.1 MG/DL (8.5-10.1); CHLORIDE 97 MMOL/L (99-107); CREATININE 1.54 MG/DL (0.60-1.10); GLUCOSE 140 MG/DL (70-104); POTASSIUM 5.1 MMOL/L (3.5-5.1); SODIUM 130 MMOL/L (135-145); TOTAL CARBON DIOXIDE 23.6 MMOL/L (24-32); TOTAL PROTEIN 6.3 G/DL (6.4-8.2); eGFR 46 ML/MIN
[2021-03-05] MEDS ORDERED: temazepam 15mg capsule PO PRN (21:00)
[2021-03-05 22:34] LABS: TROPONIN I 0.14 NG/ML (0.0-0.05)
--- NOTE | 2021-03-05 23:42 | NUR ---
MD NUNEZ AWARE OF PT'S TROPONIN, WILL CONTINUE WITH STANDING ORDERS. HE STATES THAT HE IS NOT CONCERNED OF PT'S TROPONIN AT PRESENT.
[2021-03-06] MEDS: DOPamine 400mg/D5W 250ml 250 ML IV SCH ×2 (02:21→23:52)
[2021-03-06] MEDS: normal saline 1000ml 1,000 ML IV SCH (04:26)
--- NOTE | 2021-03-06 07:30 | NUR ---
Patient in room PCU 3012. I have received report from Lee PIÑA and had the opportunity to ask questions and assume patient care.
[2021-03-06 07:54] VITALS: BP 95/77
[2021-03-06] MEDS: carvedilol 6.25mg tablet PO SCH ×2 (08:00→20:00)
[2021-03-06] MEDS: atorvastatin 20mg tablet PO SCH (08:00)
[2021-03-06] MEDS: docusate sod 100mg capsule PO SCH ×2 (08:00→20:00)
[2021-03-06 08:36] LABS: BASOPHILS # (AUTO) 0.1 X10'3 (0-0.2); EOSINOPHILS # (AUTO) 0.1 X10'3 (0-0.9); EOSINOPHILS % (AUTO) 1.2 % (0-6); HEMATOCRIT 41.1 % (42.0-52.0); HEMOGLOBIN 13.6 g/dl (14.0-17.9); LYMPHOCYTES # (AUTO) 0.8 X10'3 (1.1-4.8); LYMPHOCYTES % (AUTO) 12.1 % (21-51); MEAN CORPUSCULAR HEMOGLOBIN 32.8 PG (27.0-31.0); MEAN CORPUSCULAR HGB CONC 33.2 g/dL (33.0-36.5); MEAN PLATELET VOLUME 7.1 FL (7.4-10.4); MONOCYTES # (AUTO) 0.7 X10'3 (0-0.9); NEUTROPHILS # (AUTO) 4.8 X10'3 (1.8-7.7); NEUTROPHILS % (AUTO) 74.7 % (42-75); PLATELET COUNT 179 X10'3 (140-440); RED BLOOD COUNT 4.16 X10'6 (4.70-6.10); RED CELL DISTRIBUTION WIDTH 14.8 % (11.5-14.5); WHITE BLOOD COUNT 6.5 X10'3 (4.5-11.0)
[2021-03-06] MEDS: ipratropium/albuterol 3ml nebule NEB SCH ×4 (08:38→20:09)
[2021-03-06 08:45] VITALS: BP 112/71
[2021-03-06 08:47] LABS: ALANINE AMINOTRANSFERASE 88 U/L (12-78); ALBUMIN 3.1 G/DL (3.4-5.0); ALBUMIN/GLOBULIN RATIO 0.9 (1.1-1.5); ALKALINE PHOSPHATASE 129 IU/L (46-116); ANION GAP 9 (8-16); ASPARTATE AMINO TRANSFERASE 58 U/L (10-37); BILIRUBIN,TOTAL 0.8 MG/DL (0.1-1.0); BLOOD UREA NITROGEN 38 MG/DL (7-18); BUN/CREATININE RATIO 29.7 (5.4-32.0); CALCIUM 8.6 MG/DL (8.5-10.1); CHLORIDE 100 MMOL/L (99-107); CHOLESTEROL 113 MG/DL (0-200); CREATININE 1.28 MG/DL (0.60-1.10); GLUCOSE 121 MG/DL (70-104); HDL CHOLESTEROL 28 MG/DL (35-60); LDL CHOLESTEROL 69 MG/DL (50-100); POTASSIUM 5.5 MMOL/L (3.5-5.1); SODIUM 133 MMOL/L (135-145); TOTAL PROTEIN 6.5 G/DL (6.4-8.2); TRIGLYCERIDES 81 MG/DL (20-135); eGFR 57 ML/MIN
[2021-03-06] MEDS: heparin, porcine 5000 units/ml vial SQ SCH ×2 (09:31→20:00)
[2021-03-06] MEDS: clopidogrel 75mg tablet PO SCH (09:31)
[2021-03-06] MEDS: pantoprazole 40mg Tablet.DR PO SCH (09:32)
[2021-03-06] MEDS: aspirin 81mg, enteric-coated 1 TAB TABLET.DR PO SCH (09:33)
[2021-03-06] MEDS: nicotine 21mg patch - 24 hr TD SCH (09:33)
[2021-03-06] MEDS ORDERED: sodium polystyrene sulfonate 15gm/60ml oral suspension PO ONE (10:10)
[2021-03-06 11:00] VITALS: BP 94/71
[2021-03-06 15:00] VITALS: BP 111/76
--- NOTE | 2021-03-06 16:29 | NUR ---
PAGER ID: [phone] MESSAGE: Enrique Mukul Mercado [id number] is requesting Robitussum for a sore, scratchy throat. May I order him some? Thank you, Christina VALENTE [id number]
[2021-03-06 18:00] VITALS: BP 104/73
--- NOTE | 2021-03-06 18:00 | NUR ---
Patient in room PCU 3012. I have received report from Naye and had the opportunity to ask questions and assume patient care.
--- NOTE | 2021-03-06 18:34 | NUR ---
Problems reprioritized. Patient report given, questions answered & plan of care reviewed with Adrienne PIÑA.
--- NOTE | 2021-03-06 18:41 | NUR ---
Patient in room PCU 3012. I have received report from Naye and had the opportunity to ask questions and assume patient care.
--- NOTE | 2021-03-06 20:38 | NUR ---
Pt went into a 14 run V_TACH and back into a SR, DR Carroll notified, no new orders
[2021-03-06] MEDS ORDERED: metoprolol tartrate 25mg tablet PO ONE (20:55)
[2021-03-06] MEDS ORDERED: normal saline 1000ml 1,000 ML IV ONE (21:00)
[2021-03-06 21:37] LABS: MAGNESIUM 1.8 MG/DL (1.5-2.4); TROPONIN I 0.1 NG/ML (0.0-0.05)
[2021-03-06 22:00] VITALS: BP 111/74
--- NOTE | 2021-03-07 00:26 | NUR ---
pt had another 10beat run of [employer], Dr Carroll notified, ordered metoprolol 25mg, and an IV bolus, xray and labs done. Addendum: 03/07/21 at 0107 by Adrienne Noble RN Earlier orders not carried out due to concerns of CHF and heart medications with low blood pressure, Dr Carroll asks to be notified when orders not followed or pt concerns.
[2021-03-07 02:00] VITALS: BP 98/76
--- NOTE | 2021-03-07 04:05 | NUR ---
Pt went into a v-tach 13 beat run, Dr Carroll informed. No new orders at this time.
--- NOTE | 2021-03-07 06:13 | NUR ---
Problems reprioritized. Patient report given, questions answered & plan of care reviewed with Naye.
--- NOTE | 2021-03-07 06:50 | NUR ---
Patient in room PCU 3012. I have received report from AALIYAH PIÑA and had the opportunity to ask questions and assume patient care.
[2021-03-07 06:57] VITALS: BP 98/69
[2021-03-07] MEDS: ipratropium/albuterol 3ml nebule NEB SCH (07:22)
[2021-03-07] MEDS: atorvastatin 20mg tablet PO SCH (08:00)
[2021-03-07] MEDS: docusate sod 100mg capsule PO SCH (08:00)
[2021-03-07 09:31] VITALS: BP 111/74
[2021-03-07] MEDS: nicotine 21mg patch - 24 hr TD SCH (09:35)
[2021-03-07] MEDS: heparin, porcine 5000 units/ml vial SQ SCH (09:36)
[2021-03-07] MEDS: carvedilol 6.25mg tablet PO SCH (09:36)
[2021-03-07] MEDS: pantoprazole 40mg Tablet.DR PO SCH (09:37)
[2021-03-07] MEDS: aspirin 81mg, enteric-coated 1 TAB TABLET.DR PO SCH (09:37)
[2021-03-07] MEDS: clopidogrel 75mg tablet PO SCH (09:37)
--- NOTE | 2021-03-07 09:51 | NUR ---
PAGER ID: [phone] MESSAGE: PT JERONIMO [id number] , had another 12 beat run of vtach at 0900 today. AM labs are not back, yesterday K+ was 5.5 and only one BM since [place] yesterday, might need additional dose. pls advise, Christina [id number]
[2021-03-07 10:19] LABS: BASOPHILS # (AUTO) 0.1 X10'3 (0-0.2); BASOPHILS % (AUTO) 1.2 % (0-1); EOSINOPHILS # (AUTO) 0.1 X10'3 (0-0.9); EOSINOPHILS % (AUTO) 1.3 % (0-6); HEMATOCRIT 42.3 % (42.0-52.0); LYMPHOCYTES # (AUTO) 0.8 X10'3 (1.1-4.8); LYMPHOCYTES % (AUTO) 10.8 % (21-51); MEAN CORPUSCULAR HEMOGLOBIN 33.4 PG (27.0-31.0); MEAN CORPUSCULAR HGB CONC 33.2 g/dL (33.0-36.5); MEAN CORPUSCULAR VOLUME 100.4 FL (78-98); MEAN PLATELET VOLUME 7.1 FL (7.4-10.4); MONOCYTES # (AUTO) 0.7 X10'3 (0-0.9); MONOCYTES % (AUTO) 9.8 % (2-12); NEUTROPHILS # (AUTO) 5.6 X10'3 (1.8-7.7); NEUTROPHILS % (AUTO) 76.9 % (42-75); PLATELET COUNT 175 X10'3 (140-440); RED BLOOD COUNT 4.21 X10'6 (4.70-6.10); RED CELL DISTRIBUTION WIDTH 14.7 % (11.5-14.5); WHITE BLOOD COUNT 7.3 X10'3 (4.5-11.0)
[2021-03-07 10:35] LABS: ALANINE AMINOTRANSFERASE 84 U/L (12-78); ALBUMIN 3.1 G/DL (3.4-5.0); ALBUMIN/GLOBULIN RATIO 0.9 (1.1-1.5); ALKALINE PHOSPHATASE 126 IU/L (46-116); ANION GAP 13 (8-16); ASPARTATE AMINO TRANSFERASE 57 U/L (10-37); BILIRUBIN,TOTAL 0.8 MG/DL (0.1-1.0); BLOOD UREA NITROGEN 26 MG/DL (7-18); BUN/CREATININE RATIO 27.1 (5.4-32.0); CALCIUM 8.1 MG/DL (8.5-10.1); CHLORIDE 98 MMOL/L (99-107); CREATININE 0.96 MG/DL (0.60-1.10); GLUCOSE 126 MG/DL (70-104); SODIUM 131 MMOL/L (135-145); TOTAL CARBON DIOXIDE 19.8 MMOL/L (24-32); TOTAL PROTEIN 6.6 G/DL (6.4-8.2); eGFR 79 ML/MIN
[2021-03-07 11:00] VITALS: BP 98/75
--- NOTE | 2021-03-07 18:32 | NUR ---
Pt stable and comfortable at discharge. Removed Telemetry and PIV with Cannula intact. No redness or irritation at PIV site. Gathered all patient belongings and gave to patient for discharge. Gathered all discharge information and discharge education and gave to patient. Reviewed and answered all questions regarding discharge information and discharge education. Patient was able to verbalize back all discharge information and discharge education. Wheeled patient out to lobby in wheelchair by staff. Patient left hospital via private car.
== END 2021-03-07 12:53 | disposition home or self-care (01) | DRG 194 ==
LOC: ER 00:18 → ED HOLD 03:07 → PCU 3S 03-06 07:35
PROVIDERS: ADMIT Family Medicine; ATTEND Internal Medicine
DX: I11.0 Hypertensive heart disease with heart failure (principal); E86.1 Hypovolemia; N17.9 Acute kidney failure, unspecified; E87.1 Hypo-osmolality and hyponatremia; E78.5 Hyperlipidemia, unspecified; E87.5 Hyperkalemia; I25.10 Atherosclerotic heart disease of native coronary artery without angina pectoris; I50.43 Acute on chronic combined systolic (congestive) and diastolic (congestive) heart failure; J44.9 Chronic obstructive pulmonary disease, unspecified; R29.6 Repeated falls; F17.200 Nicotine dependence, unspecified, uncomplicated; Z79.02 Long term (current) use of antithrombotics/antiplatelets; Z79.82 Long term (current) use of aspirin; Z85.72 Personal history of non-Hodgkin lymphomas; Z86.73 Personal history of transient ischemic attack (TIA), and cerebral infarction without residual deficits; Z95.0 Presence of cardiac pacemaker; Z82.49 Family history of ischemic heart disease and other diseases of the circulatory system; Z79.899 Other long term (current) drug therapy
CPT/HCPCS: 36415; 71045; 80053; 80061; 81001; 82550; 82948; 83036; 83605; 83690; 83735; 83880; 84100; 84145; 84484; 85025; 85610; 85730; 87040; 87081; 93005; 93306; 94640; 94760; 96360; 99285; G0378; J1265; J1644; J1815; J7030; J7040

== ENCOUNTER 2021-05-16 05:21 | Emergency (ER) | payer MEDICAID ==
[~2021-05-16] VITALS: Ht 170.2 cm; Wt 77.3 kg
[~2021-05-16 05:21] MED LIST changes: -ALB0.5UD IH; +ATOR-2 PO; -ATOR20TA66 PO; +CARV6.253 PO; -CLOP75TA15 PO; +CLOP75TA34 PO
--- NOTE | 2021-05-16 05:30 | NUR ---
patient transitioned to NC 3L O2 100%
--- NOTE | 2021-05-16 06:35 | NUR ---
PT IS CURRENT SMOKER. PT STATES HIS DR MILLS'D HIS SPIRONOLACTONE 1 WEEK AGO. HAS NOTICED SLIGHT DECREASE IN URINE OUTPUT. REPORTS INCREASED EDEMA OVER PAST FEW DAYS. PT STARTED METFORMIN 2 WEEKS AGO. CURRENTLY PT ON ROOM AIR SPO2 97%.
[2021-05-16 07:32] LABS: BASOPHILS # (AUTO) 0.1 X10'3 (0-0.2); BASOPHILS % (AUTO) 1.2 % (0-1); EOSINOPHILS # (AUTO) 0.1 X10'3 (0-0.9); EOSINOPHILS % (AUTO) 2.5 % (0-6); HEMOGLOBIN 12.5 g/dl (14.0-17.9); LYMPHOCYTES # (AUTO) 0.8 X10'3 (1.1-4.8); MEAN CORPUSCULAR HEMOGLOBIN 30.8 PG (27.0-31.0); MEAN CORPUSCULAR HGB CONC 32.9 g/dL (33.0-36.5); MEAN CORPUSCULAR VOLUME 93.5 FL (78-98); MEAN PLATELET VOLUME 7.3 FL (7.4-10.4); MONOCYTES # (AUTO) 0.6 X10'3 (0-0.9); MONOCYTES % (AUTO) 11.9 % (2-12); NEUTROPHILS # (AUTO) 3.5 X10'3 (1.8-7.7); NEUTROPHILS % (AUTO) 68.4 % (42-75); PLATELET COUNT 141 X10'3 (140-440); RED BLOOD COUNT 4.07 X10'6 (4.70-6.10); RED CELL DISTRIBUTION WIDTH 16.5 % (11.5-14.5); WHITE BLOOD COUNT 5.1 X10'3 (4.5-11.0)
[2021-05-16 07:54] LABS: ALANINE AMINOTRANSFERASE 24 U/L (12-78); ALBUMIN 3.5 G/DL (3.4-5.0); ALKALINE PHOSPHATASE 130 IU/L (46-116); ANION GAP 13 (8-16); ASPARTATE AMINO TRANSFERASE 27 U/L (10-37); BILIRUBIN,TOTAL 1.2 MG/DL (0.1-1.0); BLOOD UREA NITROGEN 15 MG/DL (7-18); CALCIUM 9.3 MG/DL (8.5-10.1); CHLORIDE 102 MMOL/L (99-107); CREATININE 0.94 MG/DL (0.60-1.10); GLUCOSE 125 MG/DL (70-104); POTASSIUM 4.1 MMOL/L (3.5-5.1); SODIUM 141 MMOL/L (135-145); TOTAL CARBON DIOXIDE 26.3 MMOL/L (24-32); eGFR 81 ML/MIN
[2021-05-16] MEDS ORDERED: furosemide 40mg/4ml inj IV ONE (08:10)
[2021-05-16] MEDS ORDERED: furosemide 10 MG/1 ML 10ml inj IV ONE (08:10)
[2021-05-16 09:00] VITALS: BP 125/86
== END 2021-05-16 08:50 | disposition home or self-care (01) ==
LOC: ER 05:21
DX: I50.9 Heart failure, unspecified (principal); R06.02 Shortness of breath; J45.909 Unspecified asthma, uncomplicated; Z95.0 Presence of cardiac pacemaker; Z72.89 Other problems related to lifestyle; Z79.82 Long term (current) use of aspirin; Z79.899 Other long term (current) drug therapy
CPT/HCPCS: 36415; 71045; 80053; 83880; 85025; 93005; 96374; 99285; J1940

== ENCOUNTER 2021-07-06 07:19 | Emergency (ER) | payer MEDICAID ==
[~2021-07-06] VITALS: Ht 170.2 cm; Wt 75.9 kg
[2021-07-06] MEDS ORDERED: furosemide 10 MG/1 ML 10ml inj IV ONE (08:30)
[2021-07-06 09:00] LABS: BASOPHILS # (AUTO) 0.1 X10'3 (0-0.2); BASOPHILS % (AUTO) 1.5 % (0-1); EOSINOPHILS # (AUTO) 0.2 X10'3 (0-0.9); EOSINOPHILS % (AUTO) 2.9 % (0-6); HEMATOCRIT 35.8 % (42.0-52.0); HEMOGLOBIN 11.8 g/dl (14.0-17.9); LYMPHOCYTES # (AUTO) 0.9 X10'3 (1.1-4.8); LYMPHOCYTES % (AUTO) 15.4 % (21-51); MEAN CORPUSCULAR HEMOGLOBIN 29.6 PG (27.0-31.0); MEAN CORPUSCULAR HGB CONC 33.1 g/dL (33.0-36.5); MEAN CORPUSCULAR VOLUME 89.5 FL (78-98); MEAN PLATELET VOLUME 7.2 FL (7.4-10.4); MONOCYTES # (AUTO) 0.5 X10'3 (0-0.9); MONOCYTES % (AUTO) 9.4 % (2-12); NEUTROPHILS % (AUTO) 70.8 % (42-75); PLATELET COUNT 160 X10'3 (140-440); RED CELL DISTRIBUTION WIDTH 17.2 % (11.5-14.5); WHITE BLOOD COUNT 5.7 X10'3 (4.5-11.0)
[2021-07-06 09:13] LABS: ANION GAP 8 (8-16); BLOOD UREA NITROGEN 23 MG/DL (7-18); BUN/CREATININE RATIO 18.3 (5.4-32.0); CHLORIDE 98 MMOL/L (99-107); CREATININE 1.26 MG/DL (0.60-1.10); GLUCOSE 102 MG/DL (70-104); POTASSIUM 4.2 MMOL/L (3.5-5.1); SODIUM 134 MMOL/L (135-145); TOTAL CARBON DIOXIDE 28.5 MMOL/L (24-32)
[2021-07-06 09:14] LABS: ALANINE AMINOTRANSFERASE 18 U/L (12-78); ALBUMIN 3.3 G/DL (3.4-5.0); ALKALINE PHOSPHATASE 149 IU/L (46-116); ASPARTATE AMINO TRANSFERASE 24 U/L (10-37); BILIRUBIN,TOTAL 1.3 MG/DL (0.1-1.0); CALCIUM 9.3 MG/DL (8.5-10.1); LIPASE < 50 U/L (73-393); TOTAL PROTEIN 6.7 G/DL (6.4-8.2); eGFR 58 ML/MIN
[2021-07-06 10:48] VITALS: BP 115/89
== END 2021-07-06 11:19 | disposition home or self-care (01) ==
LOC: ER 07:20
DX: N43.3 Hydrocele, unspecified (principal); N50.89 Other specified disorders of the male genital organs; R60.0 Localized edema; R60.9 Edema, unspecified; I50.9 Heart failure, unspecified; J45.909 Unspecified asthma, uncomplicated; Z72.89 Other problems related to lifestyle; Z95.0 Presence of cardiac pacemaker; Z88.8 Allergy status to other drugs, medicaments and biological substances; Z79.82 Long term (current) use of aspirin; Z79.899 Other long term (current) drug therapy
CPT/HCPCS: 36415; 71045; 76870; 80053; 83690; 85025; 93976; 96374; 99285; J1940

== ENCOUNTER 2023-02-25 02:30 | Emergency (ER) | payer OTHER, MEDICAID ==
[~2023-02-25] VITALS: Ht 172.7 cm; Wt 65.9 kg
[~2023-02-25 02:30] MED LIST changes: -FOLI1TAB16 PO; +FOLI1TAB27 PO
[2023-02-25] MEDS ORDERED: albuterol 2.5 MG/3 ML nebule CONTNEB PRN (02:45)
[2023-02-25 02:48] VITALS: PULSE 180; RESP 30; O2SAT 90
[2023-02-25 02:49] VITALS: PULSE 162; RESP 32; O2SAT 90
[2023-02-25] MEDS ORDERED: azithromycin/NS 500mg/250ml 250 ML IV ONE (03:05)
[2023-02-25] MEDS ORDERED: CefTRIAXone 2gm/D5W 50ml BAG 50 ML IV ONE (03:05)
[2023-02-25] MEDS ORDERED: methylPREDNISolone sod succ 125mg/2ml vial IV ONE (03:05)
[2023-02-25] MEDS ORDERED: diltiazem 5mg/ml 5ml inj. IV ONE (03:05)
[2023-02-25 03:06] LABS: ABG BASE EXCESS -2.6 mmol/L (-2.0-2.0); ABG HCO3 21.7 mmol/L (22.0-26.0); ABG OXYGEN SATURATION 99.6 % (94-97); ABG PCO2 (T) 37.7 mmHg (35.0-48.0); ABG PH (T) 7.381 (7.340-7.440); ABG PO2 (T) 305.3 mmHg (75.0-100.0); ALLEN'S TEST POSITIVE; FCOHb 0.6 % (0.0-3.9); FHHb 0.4 % (0.0-5.0); FMetHb 0.2 % (0.0-1.5); FO2Hb 98.8 % (94-97); MODE MASK - BIPAP; PATIENT TEMPERATURE 37.8; RESPIRATORY RATE 12 b/min; TOTAL HEMOGLOBIN 14.2 G/dl (14.0-17.9)
[2023-02-25 03:20] LABS: BASOPHILS % (AUTO) 0.1 % (0-1); EOSINOPHILS % (AUTO) 0.5 % (0-6); HEMATOCRIT 38.8 % (42.0-52.0); LYMPHOCYTES # (AUTO) 0.2 X10'3 (1.1-4.8); LYMPHOCYTES % (AUTO) 2.9 % (21-51); MEAN CORPUSCULAR HEMOGLOBIN 33.4 PG (27.0-31.0); MEAN CORPUSCULAR HGB CONC 33.6 g/dL (33.0-36.5); MEAN CORPUSCULAR VOLUME 99.3 FL (78-98); MEAN PLATELET VOLUME 7.3 FL (7.4-10.4); MONOCYTES # (AUTO) 0.1 X10'3 (0-0.9); MONOCYTES % (AUTO) 1.5 % (2-12); NEUTROPHILS # (AUTO) 7.3 X10'3 (1.8-7.7); PLATELET COUNT 247 X10'3 (140-440); RED CELL DISTRIBUTION WIDTH 15.5 % (11.5-14.5); WHITE BLOOD COUNT 7.6 X10'3 (4.5-11.0)
[2023-02-25 03:33] LABS: ALANINE AMINOTRANSFERASE 17 U/L (12-78); ALBUMIN 2.1 G/DL (3.4-5.0); ALBUMIN/GLOBULIN RATIO 0.6 (1.1-1.5); ALKALINE PHOSPHATASE 216 IU/L (46-116); ANION GAP 11 (8-16); ASPARTATE AMINO TRANSFERASE 20 U/L (10-37); BILIRUBIN,TOTAL 1.7 MG/DL (0.1-1.0); BLOOD UREA NITROGEN 70 MG/DL (7-18); BUN/CREATININE RATIO 19.4 (10.0-20.0); CALCIUM 9.1 MG/DL (8.5-10.1); CHLORIDE 98 MMOL/L (99-107); GLUCOSE 125 MG/DL (70-104); POTASSIUM 5.5 MMOL/L (3.5-5.1); SODIUM 131 MMOL/L (135-145); TOTAL PROTEIN 5.8 G/DL (6.4-8.2); eCRCL 19 ML/MIN; eGFR 17 ML/MIN
[2023-02-25 03:43] LABS: PRO BRAIN NATRIURETIC PEPTIDE > 30000 PG/ML (0-125)
[2023-02-25] MEDS ORDERED: LORazepam 2 mg/ml vial ONE (03:44)
[2023-02-25 04:10] VITALS: PULSE 132; RESP 24; O2SAT 84
[2023-02-25] MEDS ORDERED: flumazenil 0.1 mg/ml inj. IV ONE (04:20)
[2023-02-25 04:26] VITALS: BP 156/116
[2023-02-25] MEDS ORDERED: acetaminophen 650mg rectal suppository RC ONE (04:30)
[2023-02-25 04:40] VITALS: RESP 32; O2SAT 98
[2023-02-25] MEDS ORDERED: NORepinephrine 8mg/ 250ml NS 250 ML IV ONE (05:34)
[2023-02-25] MEDS ORDERED: NORepinephrine 8mg/ 250ml NS 250 ML IV SCH (05:35)
[2023-02-25 05:40] VITALS: PULSE 46; TEMP 101.8
[2023-02-25] MEDS ORDERED: epiNEPHrine 0.1mg/ml 10ml syringe ONE (08:00)
[2023-02-25] MEDS ORDERED: sod chloride 0.9% 10ml flush syringe IV ONE (08:00)
[2023-02-25] MEDS ORDERED: DOPamine/D5W 400mg/250ml bag IV ONE (08:00)
--- NOTE | 2023-02-25 08:47 | NUR ---
Logan Mercado came in. Paperwork completed. Liz at [employer] notified. [facility] in [place].
--- NOTE | 2023-02-25 08:54 | NUR ---
Luis Merc[facility]
--- NOTE | 2023-02-25 09:01 | NUR ---
No answer at [facility]. Unable to leave message r/t voicemail being full.
--- NOTE | 2023-02-25 10:01 | NUR ---
Called [facility] in [place] and spoke to . Pt's information has been submitted, awaiting transport.
== END 2023-02-25 11:05 ==
LOC: ER 02:31
DX: I46.9 Cardiac arrest, cause unspecified (principal); A41.9 Sepsis, unspecified organism; J96.90 Respiratory failure, unspecified, unspecified whether with hypoxia or hypercapnia
CPT/HCPCS: 36415; 36556; 36600; 71045; 80053; 82803; 83605; 83880; 84484; 85018; 85025; 87040; 87077; 87186; 92950; 93005; 94640; 94644; 94660; 96365; 96367; 96368; 96375; 99285; J0171; J0456; J0696; J1265; J2060; J2930; J3490; J7030; 94760; A7015; C1751; C1758